=== PATIENT | male | born 1950 | race Caucasian/White ===

== ENCOUNTER 2018-09-16 06:58 | Inpatient (IN) | payer OTHER ==
[~2018-09-16] VITALS: Ht 190.5 cm; Wt 88.8 kg
[2018-09-16 07:18] LABS: ABSOLUTE EOSINOPHILS 0.1 thou/uL (0.0-0.7); ABSOLUTE LYMPHOCYTES 1.3 thou/uL (0.8-5.3); ABSOLUTE MONOCYTES 0.3 thou/uL (0.0-1.2); ABSOLUTE NEUTROPHILS 4.5 thou/uL (1.6-8.1); BASOPHILS 0.3 %; EOSINOPHILS 1.2 %; HEMATOCRIT 43.7 % (42.0-52.0); HEMOGLOBIN 14.9 gm/dL (14.0-18.0); LYMPHOCYTES 20.6 %; MCH 32.2 pg (26.0-34.0); MCHC 34.2 g/dL (28.0-37.0); MCV 94.1 fL (80.0-100.0); MONOCYTES 4.9 %; MPV 7.1 fl. (7.2-11.1); NUCLEATED RBCS 0 /100WBC; PLATELET COUNT* 238 thou/uL (150-400); RBC 4.64 mil/uL (4.50-6.00); RDW-CV 13.7 % (10.5-14.5); WBC 6.1 thou/uL (4.0-11.0)
[2018-09-16 07:26] LABS: ANION GAP 6 mmol/L (7-16); BUN 14 mg/dL (7-18); CALCIUM 8.9 mg/dL (8.5-10.1); CHLORIDE 98 mmol/L (98-107); CO2 28 mmol/L (21-32); CREATININE 0.8 mg/dL (0.6-1.3); GLUCOSE 110 mg/dL (70-99); POTASSIUM 3.6 mmol/L (3.5-5.1); SODIUM 132 mmol/L (136-145)
[2018-09-16 07:29] LABS: APTT 28.5 Seconds (25.0-31.3); PROTIME 10.2 Seconds (9.20-11.50)
[2018-09-16 07:33] LABS: ALBUMIN 3.4 g/dL (3.4-5.0); ALKALINE PHOSPHATASE 90 U/L (46-116); SGOT 22 U/L (15-37); SGPT 22 U/L (30-65); TOTAL BILIRUBIN 0.7 mg/dL (<0.1-1.0); TOTAL PROTEIN 6.9 g/dL (6.4-8.2); TROPONIN-I LEVEL <0.06 ng/mL (<0.06)
[2018-09-16 07:44] VITALS: BP 173/109
[2018-09-16 08:10] LABS: URINE BILIRUBIN NEGATIVE (Negative); URINE BLOOD NEGATIVE (Negative); URINE CLARITY CLEAR; URINE COLOR YELLOW; URINE GLUCOSE-RANDOM NEGATIVE (Negative); URINE KETONES TRACE (Negative); URINE LEUKOCYTES-REFLEX NEGATIVE (Negative); URINE NITRITE-REFLEX NEGATIVE (Negative); URINE PROTEIN NEGATIVE (Negative); URINE UROBILINOGEN 0.2 E.U./dl (0.2-1.0)
[2018-09-16 09:28] LABS: POC CA IONIZED 4.5 mg/dL (4.5-5.3); POC CREATININE 0.6 mg/dL (0.6-1.3); POC HEMOGLOBIN 15.3 g/dL (12.0-17.0); POC POTASSIUM 3.7 mmol/L (3.5-4.9)
[2018-09-16 09:30] LABS: CHOLESTEROL 157 mg/dL (<200); HDL CHOLESTEROL 60 mg/dL (>40); LDL CHOLESTEROL 93 mg/dL (<100); TC:HDL 2.6 Ratio (Not establshd); TRIGLYCERIDE 24 mg/dL (<150); VLDL 5 mg/dL (<40)
[2018-09-16 09:37] LABS: SERUM ASSESSMENT Clear
[2018-09-16 10:17] VITALS: BP 144/83
[2018-09-16 10:35] VITALS: BP 138/92
--- NOTE | 2018-09-16 14:05 | CON ---
[address] [address] CONSULTATION Name: STEPHANIE STINSON Room: [address] IN .R.#: [id number] Admission: 09/16/18 Attend Phys: Kay Shiplye MD Discharge: Date of : 52 Report #: [id number] THIS REPORT FOR: //name// CC: [facility] physician/PCP Kay Shipley DATE OF SERVICE: 09/16/2018 HISTORY OF PRESENT ILLNESS: This is a 68-year-old male patient who was evaluated by me for stroke. This is a wake-up stroke and the patient noticed the symptoms of the stroke when he woke up just before 5:00 a.m. this morning. However, some symptoms were present even before that. Symptom has fluctuated since then, but the patient has never returned back to his baseline. I have examined him multiple times and he has profound weakness on the left upper and left lower extremity. The patient has improved from that, but never really returned back to his baseline. Emergency Room physician has done a CT angio and perfusion before consulting me and I reviewed that with the radiologist and CT angiogram looks pretty clean as far as any thrombosis concern. Perfusion was symmetrical and there was no perfusion deficit. Because of that, I ordered a stat MRI in this patient. I reviewed the MRI and MRI does demonstrate finding consistent with acute lacunar CVA in the right basal ganglia area. The patient is a smoker. He is not hypertensive, when he came in his blood pressure was high 173/109, but presently it was running 136/86. REVIEW OF SYSTEMS: Indicate that the patient has what looks like a mass in the chest and that will be further evaluated. Review of systems was carried out quickly because of the time constraint and it looks like this patient is a smoker and that is his biggest risk factor so far. SOCIAL HISTORY: Positive for smoking, but he does not drink alcohol that much. PHYSICAL EXAMINATION: The patient's examination indicates that the patient is alert, responsive. To me, his speech looks unremarkable. He does move both sides of the face. He is profoundly weak in the left upper and left lower extremity, he has only slight movement there. He said he had no movement at one time, but on other time, he had good movements and it has fluctuated. IMPRESSION: This was a difficult situation. It was a wake-up stroke. However, we try to find out if there is any intervention, which can be done for the wake-up stroke. However, his CT angiogram shows no thrombus and CT perfusion is symmetrical. Therefore, he was not considered any intra-arterial intervention candidate. The question was whether to give him TPA or not. We tried to evaluate it as much as we can. It is a wake-up stroke, so the timing is not clear. It has fluctuated, but he has never returned to the baseline meaning the time has to be taken as when he was last seen normal that is before he went to bed last night. That will make him outside the [place] [address] CONSULTATION Name: STEPHANIE STINSON Room: [address] IN [facility]#: [id number] Admission: 09/16/18 Attend Phys: Kay Shipley MD Discharge: Date of : 52 Report #: [id number] consider the timing when woke up just before 5:00, but even that is difficult to determine. I discussed that difficulty with him. I was going to go ahead and give TPA, but he declined that. He was already consulted by Emergency Room physician and he is scared about the complication rate in this patient. The indication is not clear in this patient because it is a wake-up stroke and we cannot make a good tissue diagnosis to tell the timing. We will respect the patient's wishes because the chances are that this stroke is already more than 3-hour old and most likely more than 4-1/2 hour old. At one time, lacunar cerebrovascular accident was not considered a TPA candidate, but now they are considered TPA candidate and TPA is given and I do not think that is an issue. It is just that timing in this patient as the benefit decreases significantly with the timing. In any event, the patient was given that option and he decided not to proceed with that option and we will mainly give him IV fluid, aspirin. Because of the possibility of tumor, I was concerned with intracranial sinus thrombosis, but his intracranial sinuses light up pretty nicely and he does not look like he has any thrombosis there. Unfortunately, I do not think anything can be done in this patient. He has a lacunar cerebrovascular accident, for which the typical history is they fluctuate some time for several days and then they complete their deficit and many time the patient is fully paralyzed on that side within a few hours to within a few days. That is a typical course of the lacunar cerebrovascular accident. Not much can be done to change that course. We still go ahead and give TPA in this patient even if no thrombus is demonstrated, but in this patient the problem is the time of onset is not clear and it is a wake-up stroke and most likely it is outside the window for TPA. As mentioned, I did discuss the options with the patient in that regard. He is going to need extensive rehabilitation. He needs to be worked up for any predisposing factors. He needs to stop smoking. I will talk to Dr. Shipley and see if we can hold his CT chest because he will need another contrast still his stroke stabilizes. We will give him some fluid bolus. He already received aspirin. He will need extensive PT, OT. The only good news in this regard is that the patient cerebrovascular accident is subcortical and they tend to have a better prognosis over a period of time than the cortical cerebrovascular accident. We will see the patient again this afternoon. The following addendum is being added at the time of signing this note. The patient was reevaluated. He does not appear to have any movement on the left side. Slight movement he has appeared to be reflex than voluntary movement. I was able to reach the family were in the room when I reexamined him. They provided further and interesting history. This patient's had some problems with chemotherapy. 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 He is very strong on Naturopathy and does not like the traditional medicine. [place] [address] CONSULTATION Name: STEPHANIE STINSON Room: [address] IN [facility]#: [id number] Admission: 09/16/18 Attend Phys: Kay Shipley MD Discharge: Date of : 51 Report #: [id number] does not even like to be here and that does explain his reluctance for any traditional medication. I had a long talk with the patient and the family. After that talk the patient is willing to undergo multiple treatments which will like to do including physical therapy occupational therapy and speech therapy. He is somewhat upset that we have not fed him and he will like caffeine and food. I discussed with him that we need to get clearance from speech therapy and the reason for that and to make sure what he eats does not go to his lungs. Initially he indicated that he will know when it goes to his lungs but after explaining to him he agreed to wait for speech therapy. I suspect speech therapy will clear him for swallowing and that will not be an issue. Family inquired about nicotine patch and I asked them to talk to hospitalist. I had a long talk with the patient and the family and we will continue to carry out the rehabilitation in this patient. More than 60 minutes of time was spent taking care of this patient today and majority of that time was spent counseling the patient on my multiple visits with him as well as the family and coordinating his care. I will talk to him again tomorrow and continue to work with him. <ELECTRONICALLY SIGNED> By: Roberto Seymour MD 09/16/18 1405 1009 [id number] Seymour MD /nt
--- NOTE | 2018-09-16 15:47 | 2DMMODE ---
[place] [address] 2 D/M-MODE ECHOCARDIOGRAM Name: STEPHANIE STINSON Room: [address] IN [facility]#: [id number] Admission: 09/16/18 Attend Phys: Kay Shipley, Discharge: Date of : 52 Date of Service: 09/16/18 1547 Report #: [id number] THIS REPORT FOR: //name// APPROVED REPORT Study performed: 09/16/2018 10:35:57 EXAM: Comprehensive 2D, Doppler, and color-flow Echocardiogram Patient Location: In-Patient Room #: 230 Status: routine BSA: 2.14 HR: 79 bpm BP: 136/86 mmHg Rhythm: NSR Other Information Study Quality: Good Indications CVA/TIA Echo Enhancing Agent Indication: Rule out Shunt Agent(s) / Amount(s) Used: Agitated Saline 10 cc 2D Dimensions IVSd: 14.25 (7-11mm) LVOT Diam: 23.34 (18-24mm) LVDd: 39.05 mm PWd: 11.68 (7-11mm) Ascending Ao: 36.77 (22-36mm) LVDs: 25.23 (25-40mm) Aortic Root: 37.66 mm Volumes Left Atrial Volume (Systole) LA ESV Index: 22.00 mL/m2 LV Strain GL Strain(%): 1.00 Aortic Valve AoV Peak Jeremias.: 1.51 m/s AO Peak Gr.: 9.11 mmHg LVOT Max P.04 mmHg AO Mean Gr.: 4.98 mmHg LVOT Mean P.91 mmHg LVOT Max V: 1.00 m/s AO V2 VTI: 25.46 cm LVOT Mean V: 0.62 m/[place] [address] 2 D/M-MODE ECHOCARDIOGRAM Name: STEPHANIE STINSON Room: [address] IN .R.#: [id number] Admission: 09/16/18 Attend Phys: Kay Shipley, Discharge: Date of : 52 Date of Service: 09/16/18 1547 Report #: [id number] GERMÁN (VTI): 3.45 cm2 LVOT V1 VTI: 20.51 cm Mitral Valve E/A Ratio: 0.80 MV Decel. Time: 314.94 ms MV E Max Jeremias.: 0.62 m/s MV PHT: 91.33 ms MVA (PHT): 2.41 cm2 TDI E/Lateral E': 4.77 E/Medial E': 5.64 Medial E' Jeremias.: 0.11 m/s Lateral E' Jeremias.: 0.13 m/s Pulmonary Valve PV Peak Jeremias.: 1.07 m/s PV Peak Gr.: 4.60 mmHg Tricuspid Valve RAP Estimate: 5.00 mmHg TR Peak Gr.: 32.16 mmHg RVSP: 37.00 mmHg PA Pressure: 37.00 mmHg Left Ventricle The left ventricle is normal size. There is normal LV segmental wall motion. Mild concentric left ventricular hypertrophy. Left ventricular systolic function is normal. The left ventricular ejection fraction is within the normal range. LVEF is 65-70%. Grade I - abnormal relaxation pattern. Right Ventricle The right ventricle is normal size. The right ventricular systolic function is normal. Atria The left atrium size is normal. Interatrial septum is intact without evidence of ASD or PFO. The right atrium size is normal. Aortic Valve The aortic valve is normal in structure. No aortic regurgitation is present. There is no aortic valvular stenosis. Mitral [place] [address] 2 D/M-MODE ECHOCARDIOGRAM Name: MILADSTEPHANIE Préez Room: [address]#: [id number] Admission: 09/16/18 Attend Phys: Kay Shipley, Discharge: Date of : 52 Date of Service: 09/16/18 1547 Report #: [id number] The mitral valve is normal in structure. Trace mitral regurgitation. No evidence of mitral valve stenosis. Tricuspid Valve The tricuspid valve is normal in structure. Trace tricuspid regurgitation. Mild pulmonary hypertension. The RVSP is 35-40 mmHg. Pulmonic Valve The pulmonary valve is normal in structure. There is no pulmonic valvular regurgitation. Great Vessels The aortic root is normal in size. IVC is normal in size and collapses >50% with inspiration. Pericardium There is no pericardial effusion. <Conclusion> Mild concentric left ventricular hypertrophy. LVEF is 65-70%. Interatrial septum is intact without evidence of ASD or PFO. <ELECTRONICALLY SIGNED> By: Ryan Freitas MD, FACC 09/16/18 1547 1547 1547 Ryan Freitas MD, FACC /INF
--- NOTE | 2018-09-16 17:16 | EKG ---
[place] [address] ELECTROCARDIOGRAM REPORT Name: MILADSTEPHANIE WOOD Room: [address] ADM IN [facility]#: [id number] Admission: 09/16/18 Attend Phys: Kay Shipley MD Discharge: Date of : 52 Report #: [id number] THIS REPORT FOR: //name// [facility] ED Test Date: 2018-09-16 Test Time: 08:20:19 Pat Name: STEPHANIE STINSON Department: Room: [facility] Gender: Power Engineer: Mark BRAVO : 1950 Requested By: Jag Antunez Order Number: [id number] MD: Ryan Freitas Measurements Intervals [place] Rate: 82 P: 63 TN: 145 QRS: 58 QRSD: 104 T: 16 QT: 376 QTc: 439 Interpretive Statements Sinus rhythm No previous ECG available for comparison Electronically Signed On 09-16-2018 17:15:51 [employer] by Ryan Freitas [email or web address] <ELECTRONICALLY SIGNED> By: Ryan Freitas MD, [facility] 09/16/18 1715 0820 9 Ryan Freitas MD, FACC /EPI
--- NOTE | 2018-09-16 17:32 | NUR ---
RECEIVED CONSULT FOR POSSIBLE REHAB ADMISSION. CONSULT HAS BEEN ACKNOWLEDGED BY FILAMENT WELDER AND DR. MEAD. PATIENT ADMITTED WITH STROKE. NEURO WORKUP IN PROGRESS. PT EVALUATION MIN-MOD A, OT EVALUATION MIN-MOD A, ST SWALLOW EVAL PATIENT PASSED, ST COG EVAL IS PENDING. WILL FOLLOW ALONG WITH PATIENT TO SEE HOW HE PROGRESSES AND WHAT NEEDS ARE WHEN CLOSER TO DISCHARGE TO DETERMINE IF PATIENT QUALIFIES FOR ACUTE REHAB. THANK YOU FOR THIS REFERRAL.
[2018-09-16] MEDS ORDERED: MAGOX 400400 MG PO (17:43)
[2018-09-16] MEDS ORDERED: CENTRUM SILVER1 EAC2 PO (17:43)
[2018-09-16] MEDS ORDERED: VITAMIN C1000 MG PO (17:44)
[2018-09-16] MEDS ORDERED: FISH OIL 1,001000 M2 PO (17:45)
[2018-09-16] MEDS ORDERED: VITAMIN D5000 UNI1 PO (17:45)
[2018-09-16] MEDS ORDERED: ENZYME DIGEST1 EACH (17:46)
[2018-09-16] MEDS ORDERED: KLOR-CON 1010 MEQ PO (17:46)
--- NOTE | 2018-09-16 19:21 | NUR ---
PT ARRIVED TO ROOM 230 AT APPROX 1030, ADMISSION ASSESSMENT AND HISTORY DONE CHARTED. PT A/O X4, NIH DONE CHARTED. FALL PRECAUTIONS IN PLACE. PT USES CALL LIGHT APPROPRIATLY. UP TO CHIAR THIS AFTERNOON WITH PT. SPEECH EXAMINED PT, OK FOR REGULAR DIET. REPORT GIVEN TO BERNIE CURTIS.
[2018-09-16 20:00] VITALS: BP 150/81
--- NOTE | 2018-09-16 20:00 | NUR ---
RECEIVED REPORT AND ASSUMED CARE OF PT, ASSESSMENT COMPLETED. DAUGHTER AT BEDSIDE. NIH SCORE 2, PT HAVING DRIFTING OF LT ARM AND LEG. NO SPEECH DIFFICULTY. O2 ON AT 2L/NC, NO SOB NOTED. VOIDING FREQ WITHOUT DIFFICULTY. PT AND DGT ASKING ABOUT LAB RESULTS, COPY OF RESULTS GIVEN TO PT. TELEMETRY ON SHOWING SR WITH PVC. WILL CONT TO MONITOR AND ASSIST NEEDED.
[2018-09-16 21:07] LABS: GLYCOHEMOGLOBIN (HGB A1C) 5.4 % (4.8-5.6)
[2018-09-17] VITALS: BP 129/84
[2018-09-17 04:00] VITALS: BP 148/69
[2018-09-17 04:42] LABS: HEMATOCRIT 40.9 % (42.0-52.0); HEMOGLOBIN 13.9 gm/dL (14.0-18.0); MCHC 33.9 g/dL (28.0-37.0); MCV 94.2 fL (80.0-100.0); MPV 7.6 fl. (7.2-11.1); RBC 4.34 mil/uL (4.50-6.00); RDW-CV 13.7 % (10.5-14.5); WBC 7.7 thou/uL (4.0-11.0)
[2018-09-17 05:00] LABS: ALBUMIN 2.9 g/dL (3.4-5.0); ALKALINE PHOSPHATASE 73 U/L (46-116); ANION GAP 7 mmol/L (7-16); BUN 7 mg/dL (7-18); CALCIUM 8.5 mg/dL (8.5-10.1); CHLORIDE 102 mmol/L (98-107); CHOLESTEROL 135 mg/dL (<200); CO2 27 mmol/L (21-32); CREATININE 0.6 mg/dL (0.6-1.3); GLUCOSE 99 mg/dL (70-99); HDL CHOLESTEROL 53 mg/dL (>40); LDL CHOLESTEROL 75 mg/dL (<100); POTASSIUM 3.4 mmol/L (3.5-5.1); SGOT 19 U/L (15-37); SGPT 18 U/L (30-65); SODIUM 136 mmol/L (136-145); TC:HDL 2.5 Ratio (Not establshd); TOTAL BILIRUBIN 0.9 mg/dL (<0.1-1.0); TOTAL PROTEIN 6.1 g/dL (6.4-8.2); TRIGLYCERIDE 39 mg/dL (<150); VLDL 8 mg/dL (<40)
--- NOTE | 2018-09-17 05:04 | NUR ---
SLEPT WELL TONIGHT. NO CHANGE IN ASSESSMENT. ABLE TO MOVE LT ARM AND LT LEG BUT WEAK. CONT TO SHOW SR WITH PVC. HS GOALS OF REST AND SAFETY ACHIEVED. HOURLY ROUNDING OBSERVED.
[2018-09-17 05:05] LABS: SERUM ASSESSMENT CLEAR
[2018-09-17 08:00] VITALS: BP 122/81
--- NOTE | 2018-09-17 11:40 | NUR ---
INITIAL ASSESSMENT: CM SPK W/PT TO DISCUSS HOME SITUATION, D/C PLANNING AND ROLE OF CM. PT A&OX4. DRIVES, LIVE @ HOME W/DTR, INDEPENDENT W/ALL ADLS. PT RECEIVES GOOD FAMILY SUPPORT AND FAMILY INVOLVED IN CARE. NO DME. NO HX W/HH NOR SNF. PT DENIES ANY NEEDS AT THIS TIME. CM REINTERATED AVAIL TO ASSIST W/DPOA QUESTIONS, FORM HAS BEEN PROVIDED TO PT. CM TO CONT FOLLOW/ASSIST PRN.
[2018-09-17 12:26] VITALS: BP 159/80
--- NOTE | 2018-09-17 16:49 | NUR ---
VSS, ASSUMED CARE OF PT THIS AM, ASSESSMENT PERFORMED AND CHARTED, FALL PRECAUTIONS IN PLACE AND CALL LIGHT IN REACH, PT IS UP AD HARSH, SR ON THE MONITOR, ON 2L NC, DENIES ANY PAIN AND HIS GOAL IS TO IMPROVE BREATHING, HE IS A&O4, PT IS NEEDING 2L NC AND HAS WALKED THE UNIT AND WORKED WITH PT/OT, NIH IS 0, WILL FOLLOW WITH PLAN OF CARE.
[2018-09-17 20:00] VITALS: BP 134/76
--- NOTE | 2018-09-17 20:00 | NUR ---
RECEIVED REPORT, SITTING UP IN CHAIR VISITING WITH FAMILY. O2 ON AT 2L/NC, NO SOB NOTED. NO COUGHING. NIH 0, NO LT SIDED WEAKNESS OR SPEECH DIFFICULTY NOTED. TELEMENTRY ON SHOWING SR. WILL CONT TO MONITOR AND ASSIST NEEDED.
[2018-09-17 21:10] LABS: GLYCOHEMOGLOBIN (HGB A1C) 5.5 % (4.8-5.6)
[2018-09-18] VITALS: BP 126/67
--- NOTE | 2018-09-18 05:54 | NUR ---
SLEPT WELL TONIGHT. DID NOT DISTURB PT DURING NIGHT FOR VS PER HIS REQUEST. TELEMETRY CONT TO SHOW SR OCC SB. IV FLUIDS INFUSING. GAIT STEADY TO AND FROM BR. NO CHANGE IN ASSESSMENT. HS GOALS OF REST AND SAFETY ACHIEVED. HOURLY ROUNDING OBSERVED.
[2018-09-18 08:00] VITALS: BP 166/73
[2018-09-18] MEDS ORDERED: ASPIR 8181 MG PO (11:09)
[2018-09-18] MEDS ORDERED: ATORVASTATIN CA40 MG PO (11:09)
[2018-09-18 11:56] VITALS: BP 166/73
--- NOTE | 2018-09-18 12:30 | NUR ---
LORA FORBES WITH D/C ON PT.
--- NOTE | 2018-09-18 13:12 | NUR ---
ASSUMED CARE OF PT ASSESSED AND DOCUMENTED. PT IS TRACING SR PVCS HR 75 ON CARDIAC MONITER. VSS WNL. PT IS A&O WITH NO C/O PAIN. HE IS AFEBRILE. PT HAS BEEN D/C'D TO HOME. ALL CONSULTS OK WITH D/C. D/C'D IV AND CARDIAC MONITER. EDUCATION GIVEN RE FOLLOW-UPS. MEDICATIONS, AND DR ORDERS. SCRIPTS GIVEN. PT DOES NOT HAVE A PCP. HE STATES HE SEES A DOCTOR FRIEND IN [place]. PT TO SPEAK WITH HIM ABOUT SEEING AN OCOLOGIST. EDUCATION GIVEN ON DEMAND. ALL BELONGINGS PACKED UP AND LEFT WITH PT ACCOMPANIED BY STAFF AND PTS DAUGHTER.
--- NOTE | 2018-09-18 14:28 | CON ---
[address] [address] CONSULTATION Name: STEPHANIE STINSON Room: [address] IN .R.#: [id number] Admission: 09/16/18 Attend Phys: Kay Shipley MD Discharge: Date of : 52 Report #: [id number] THIS REPORT FOR: //name// CC: [facility] physician/PCP Kay Shipley DATE OF SERVICE: 09/17/2018 REASON FOR CONSULTATION: Lung mass. REQUESTING PHYSICIAN: Dr. Shipley. HISTORY OF PRESENT ILLNESS: The patient is a pleasant 68-year-old man who was admitted to the hospital with complaints of slurred speech and left upper extremity weakness. He presented to the Emergency Room with complaint, was diagnosed with stroke. MRI showed small focus consistent with slight diffusion in the right posterior superior basal ganglia and right posterior frontal lobe consistent with stroke. He recovered very well. His symptoms completely resolved. He had a chest x-ray done as a part of the initial workup, which showed mass in the left upper lobe. Oncology consult is requested. The patient had CT scan done. CT scan results are unavailable, but reported that he does have about 2 cm mass in the left upper lobe. He is doing well. He does not have complaints of headaches, dizziness. Denies cough, shortness of breath. He does not have hemoptysis. PAST MEDICAL HISTORY: Unremarkable other than current events. SOCIAL HISTORY: He lives with his daughter. He is twice. 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 REVIEW OF SYSTEMS: See above. PHYSICAL EXAMINATION: GENERAL: Reveals well-developed, well-nourished man, not in acute distress. VITAL SIGNS: Blood pressure 189/80, heart rate is 82, temperature 98.8, respirations 16. HEENT: Does not reveal thrush. HEART: Normal S1, S2. LUNGS: Clear. LYMPHS: There is no supraclavicular or cervical adenopathy. MENTAL STATUS: Alert, oriented x 3. NEUROLOGIC: Nonfocal. LABORATORY DATA: White count 7.2, hemoglobin 13.9, sodium 136, potassium 3.4. X-ray reviewed. CT [place] [address] CONSULTATION Name: STEPHANIE STINSON Room: [address] IN [facility]#: [id number] Admission: 09/16/18 Attend Phys: Kay Shipley MD Discharge: Date of : 52 Report #: [id number] ASSESSMENT AND PLAN: Lung mass suspicious for malignancy. At this point, he is not interested in biopsy. He is not receiving any type of chemotherapy or radiation. I discussed the pros and treatment options of lung cancers. I explained that the clinical suspicious of lung cancer is high, but he could have a curable disease as his disease is small and not stage I or stage 2. I have recommended to consider a PET scan when he is released from the hospital. I strongly suggest he request a biopsy. Thank you very much for allowing me to participate in the care of this patient. Dr. Nur will see the patient tomorrow. <ELECTRONICALLY SIGNED> By: Martine Nur MD 09/18/18 1428 1239 [id number] Mosley MD /nt
--- NOTE | 2018-09-20 08:37 | CON ---
[address] [address] CONSULTATION Name: STEPHANIE STINSON Room: [address] IN .R.#: [id number] Admission: 09/16/18 Attend Phys: Kay Shipley MD Discharge: 09/18/18 Date of : 52 Report #: [id number] THIS REPORT FOR: //name// CC: [facility] physician/PCP Kay Shipley HISTORY OF PRESENT ILLNESS: This is a 68-year-old male patient with long history of smoking. He smokes 1 pack per day for the last 50 years, although he does not carry a diagnosis of COPD. He has no baseline shortness of breath. He is not on any oxygen or inhalers at home. He told me once in 2016, he had an episode of bronchitis that was treated with antibiotic, and he felt better since then. He presented to the hospital and admitted through the Emergency Room on 09/16/2018 with left-sided weakness. 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 He was dizzy, slurring of speech and urinary incontinence. In the ER, he underwent evaluation, and he was found to have a stroke. He was given aspirin, evaluated by Neurology. His echocardiogram demonstrated preserved EF with grade 1 diastolic dysfunction. No ASD or PFO. During his workup included a CT scan of the head and neck that demonstrated 2.2 cm left upper lobe nodule. The patient denied any hemoptysis, weight loss, change in appetite. ALLERGIES: No known drug allergies. PAST MEDICAL HISTORY: Left knee surgery. No other chronic medical problems, but he admitted he does not see physicians regularly. PAST SURGICAL HISTORY: As above. FAMILY HISTORY: Reviewed with the patient, noncontributory. No chronic lung disease. SOCIAL HISTORY: He smokes 1 pack per day for the last 50 years. Does not drink alcohol. Does not abuse drugs. REVIEW OF SYSTEMS: A 12-point review of systems reviewed with the patient, negative, otherwise mentioned above. PHYSICAL EXAMINATION: VITAL SIGNS: On examination, his blood pressure 122/81. He is on 2 liter oxygen with saturation more than 90%, temperature 36.8. GENERAL: Looks his stated age, in no acute distress, speaks in full sentences. Speech clear. HEENT: Oral cavity, moist mucous membrane. Mallampati of 2. External ear looks healthy and normal. NECK: Supple[place] [address] CONSULTATION Name: MILADSTEPHANIE Pérez Room: [address]#: [id number] Admission: 09/16/18 Attend Phys: Kay Shipley MD Discharge: 09/18/18 Date of : 52 Report #: [id number] CHEST: Good air movement bilaterally. Symmetrical expansion. Nontender, no masses felt. HEART: S1, S2, no murmur. ABDOMEN: Benign, soft, nontender, positive bowel sounds. LOWER EXTREMITIES: No edema, no calf tenderness. NEUROLOGIC: Moving 4 extremities spontaneously. No focal weakness. Cranial nerves grossly normal. PSYCHIATRIC: Mood and affect slightly anxious, appropriate. Good insight and judgment. LYMPHATICS: No palpable lymph nodes. His MRI of the brain demonstrated acute stroke. Please see report. CTA of the neck reviewed, 2.2 cm left upper lobe lesion. Chest x-ray, no acute pathology other than the left upper lobe lesion. His white blood count 7.7, hemoglobin 13.9 and platelets of 243. Creatinine of 0.6, BUN of 7, potassium 3.4, sodium 136. INR of 1. IMPRESSION: 1. Acute stroke, right basal ganglia. 2. Smoker. 3. Pulmonary nodule. 4. Hypertension. The patient is scheduled to have a CT chest with contrast; however, because of the contrast he received yesterday during the stroke protocol, CTA of the head and neck, it has been delayed. Hopefully, we can get it tonight or tomorrow morning and will review the CT scan and discussed with the patient. I did discuss with the patient that depending on the CT scan finding a biopsy can be considered, and I discussed with him different approaches of biopsy; however, the patient is on high dose aspirin and that might be a limiting factor for the procedure. I also explained to the patient if it is confirmed to be malignant, he needs further testing down the road for the staging. It was noted Oncology were already consulted. At this point, he has no bronchospasm. I will hold off on steroids on nebulization treatment, although it can be used p.r.n. In the morning, my partner will check with the patient and discuss CT scan finding with the patient and his family. I did discuss above with the patient. Thank you for the consult. <ELECTRONICALLY SIGNED> By: Hemal Boyer MD 09/20/18 0837 1034 [id number] Hancock MD /nt
--- NOTE | 2018-09-22 08:51 | NUR ---
LATE ENTRY. CALL TO PT 09/20 1340 TO ATTEMPT TO ARRANGE 30 DAY CV MONITOR, HAD TO LEAVE MESSAGE. PT HAS NOT RETURNED CALL. UNABLE TO ARRANGE PT HAS NO PCP
== END 2018-09-18 13:15 | disposition home or self-care (01) | DRG 66 ==
LOC: M.ERS 06:58 → M.2W 07:48 → M.TBA-ER 07:48 → M.2W 10:45
PROVIDERS: Emergency Medicine Emergency Medical Services; ADMIT Internal Medicine
DX: I63.9 Cerebral infarction, unspecified (principal); I65.29 Occlusion and stenosis of unspecified carotid artery; R91.8 Other nonspecific abnormal finding of lung field; F17.210 Nicotine dependence, cigarettes, uncomplicated; R91.1 Solitary pulmonary nodule; I10 Essential (primary) hypertension; Z79.899 Other long term (current) drug therapy; R29.705 NIHSS score 5

== ENCOUNTER 2020-06-18 18:11 | Emergency (ER) | payer MEDICARE ==
[~2020-06-18] VITALS: Ht 190.5 cm; Wt 81.7 kg
[~2020-06-18 18:11] MED LIST: ASPIR 8181 MG PO; ATORVASTATIN CA40 MG PO; CENTRUM SILVER1 EAC2 PO; ENZYME DIGEST1 EACH; FISH OIL 1,001000 M2 PO; KLOR-CON 1010 MEQ PO; MAGOX 400400 MG PO; VITAMIN C1000 MG PO; VITAMIN D5000 UNI1 PO
[2020-06-18] MEDS ORDERED: OXYCODONE HCL E10 MG PO (18:37)
[2020-06-18 20:13] LABS: HEMATOCRIT 41.5 % (42.0-52.0); HEMOGLOBIN 13.8 gm/dL (14.0-18.0); MCH 30.5 pg (26.0-34.0); MCHC 33.2 g/dL (28.0-37.0); MCV 91.8 fL (80.0-100.0); MPV 7.3 fl. (7.2-11.1); RBC 4.51 mil/uL (4.50-6.00); RDW-CV 14.9 % (10.5-14.5); WBC 18.5 thou/uL (4.0-11.0)
[2020-06-18 20:19] LABS: CALCIUM 8.9 mg/dL (8.5-10.1); CREATININE 0.8 mg/dL (0.6-1.3); POTASSIUM 3.6 mmol/L (3.5-5.1)
[2020-06-18 20:28] LABS: ALBUMIN 2.9 g/dL (3.4-5.0); TOTAL BILIRUBIN 0.5 mg/dL (<0.1-1.0); TOTAL PROTEIN 7.3 g/dL (6.4-8.2)
[2020-06-18 20:29] LABS: APTT 25.9 Seconds (25.0-31.3); INR 1.1
[2020-06-18] MEDS ORDERED: DOXYCYCLINE 10100 MG PO (21:44)
[2020-06-18 22:06] VITALS: BP 136/78
--- NOTE | 2020-06-19 09:36 | EKG ---
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
== END 2020-06-18 22:06 | disposition home or self-care (01) ==
LOC: M.ERS 18:11
PROVIDERS: Nurse Practitioner Family
DX: N50.89 Other specified disorders of the male genital organs (principal); R60.0 Localized edema; E87.1 Hypo-osmolality and hyponatremia; C79.9 Secondary malignant neoplasm of unspecified site; Z86.73 Personal history of transient ischemic attack (TIA), and cerebral infarction without residual deficits